=== PATIENT | female | born 1995 | race Caucasian/White ===

== ENCOUNTER → 2016-05-15 | Outpatient (CLI) | payer BC ==
[~2016-05-15] MED LIST: CRANBERRY1 CAP PO; MOTRIN 200200 MG/TAB PO; NORCO 325 MG-51 TAB PO; OMNICEF 300MG300 MG PO; PERCOCET 325 MG1 TA2 PO; PREVACID 30MG30 M1 PO; RAPAFLO8 MG PO; TOPAMAX 100MG100 M1 PO; UROCIT-K 1010 MEQ PO; XYAL5 MG PO; YAZ 28 3 MG-0.01 TAB PO; ZOFRAN ODT4 MG PO; [UNRECOGNIZED DRUG - OTHER] PO
== END ==
LOC: COL.RAD 14:55
DX: R10.31 Right lower quadrant pain (principal); R93.2 Abnormal findings on diagnostic imaging of liver and biliary tract
CPT/HCPCS: Q9967

== ENCOUNTER → 2018-03-25 | Outpatient (CLI) | payer BC | LOC: COL.RAD 09:00 | DX: M65.842 Other synovitis and tenosynovitis, left hand (principal) | CPT/HCPCS: A9585; Q9967 ==